=== PATIENT | female | born 1955 | race Caucasian/White ===

== ENCOUNTER 2017-03-01 08:30 | Emergency (ER) | payer BC ==
[~2017-03-01] VITALS: Ht 162.6 cm; Wt 89.0 kg
[~2017-03-01 08:30] MED LIST: ALPR0.25 PO; CITA10TA4 PO; DULO20CA45 PO; LOSA100T6 PO; NIAC1TBM PO; OLME5TAB4 PO; OMEP20TA62 PO; ROSU5TAB PO
[2017-03-01 08:31] VITALS: BP 156/83
[2017-03-01] MEDS ORDERED: VALS1TAB24 PO (09:11)
== END 2017-03-01 10:56 | disposition home or self-care (01) ==
LOC: ED 10:09
DX: M71.22 Synovial cyst of popliteal space [Baker], left knee (principal); I10 Essential (primary) hypertension
CPT/HCPCS: 99284

== ENCOUNTER 2018-01-21 22:29 | Inpatient (IN) | payer BC ==
[~2018-01-21] VITALS: Ht 162.6 cm; Wt 80.7 kg
[~2018-01-21 22:29] MED LIST changes: +VALS1TAB24 PO
[2018-01-21] MEDS ORDERED: PROMETHAZINE 25 MG/ML, 1ML IM ONE (23:00)
[2018-01-21] MEDS ORDERED: SODIUM CHLORIDE FLUSH 10ML SYR IVF ONE (23:00)
[2018-01-21] MEDS ORDERED: SODIUM CHLORIDE 0.9% 1,000ML IVBOLUS ONE (23:00)
[2018-01-21] MEDS ORDERED: PROMETHAZINE 25 MG/ML, 1ML ONE (23:01)
[2018-01-21 23:10] LABS: BASOPHILS # (AUTO) 0.03 x10^3/uL (0-0.1); BASOPHILS % (AUTO) 0 % (0-1); EOSINOPHILS # (AUTO) 0.06 x10^3/uL (0-0.4); EOSINOPHILS % (AUTO) 0 % (1-7); LYMPHOCYTES # (AUTO) 1.63 x10^3/uL (1-3.4); LYMPHOCYTES % (AUTO) 11 % (22-44); MD NO; MEAN CORPUSCULAR HEMOGLOBIN 31.9 pg (27.0-34.8); MEAN CORPUSCULAR HGB CONC 33.9 g/dL (32.4-35.8); MEAN CORPUSCULAR VOLUME 94.2 fL (80-100); MEAN PLATELET VOLUME 8.6 fL (7.4-10.4); MONOCYTES # (AUTO) 1.03 x10^3/uL (0.2-0.8); MONOCYTES % (AUTO) 7 % (2-9); NEUTROPHILS % (AUTO) 82 % (42-75); PLATELET COUNT 445 x10^3/uL (130-400); RED BLOOD COUNT 4.11 x10^6/uL (3.82-5.3); RED CELL DISTRIBUTION WIDTH 13.7 % (9.6-15.2)
[2018-01-21 23:23] LABS: ALANINE AMINOTRANSFERASE 14 U/L (12-78); ANION GAP 9 mmol/L (5-15); CHLORIDE 105 mmol/L (98-107); CREATININE 0.61 mg/dL (0.55-1.02)
[2018-01-21 23:26] LABS: ALKALINE PHOSPHATASE 69 U/L (45-117); BILIRUBIN,TOTAL 0.3 mg/dL (0.2-1.0); TOTAL PROTEIN 7.7 g/dL (6.4-8.2)
[2018-01-21] MEDS ORDERED: OMNIPAQUE 350 MG/ML, 100ML BOTTLE ONE (23:47)
[2018-01-22] MEDS ORDERED: cipro (00:56)
[2018-01-22] MEDS ORDERED: OMEP-110 PO (00:56)
[2018-01-22] MEDS ORDERED: MELO15TA6 PO (00:56)
[2018-01-22] MEDS ORDERED: flagyl (00:56)
[2018-01-22] MEDS ORDERED: ONDANSETRON ODT 4 MG PO PRN (01:00)
[2018-01-22] MEDS ORDERED: ERTAPENEM 1 GM in SODIUM CHLORIDE 0.9% 50 ML IV ONE (01:00)
[2018-01-22] MEDS ORDERED: MORPHINE SULFATE 4 MG/ML, 1ML IVPush PRN (01:00)
[2018-01-22 01:04] LABS: MICROSCOPIC NOT IND
[2018-01-22 01:16] LABS: CULTURE INDICATED? NO
[2018-01-22 01:30] VITALS: BP 139/91
[2018-01-22] MEDS ORDERED: D5%-0.45NACL+KCL 20MEQ 1,000 ML IV SCH (01:30)
[2018-01-22] MEDS ORDERED: hydrALAzine 20 MG/ML, 1ML IVPush PRN (03:30)
[2018-01-22] MEDS: SODIUM CHLORIDE 0.9% 1,000 ML IV SCH ×3 (04:18→21:46)
[2018-01-22] MEDS: morphine SULFATE 10 MG/ML, 1ML IVPush PRN ×4 (04:18→18:29)
[2018-01-22 05:42] LABS: BASOPHILS # (AUTO) 0.06 x10^3/uL (0-0.1); BASOPHILS % (AUTO) 0 % (0-1); EOSINOPHILS % (AUTO) 0 % (1-7); LYMPHOCYTES # (AUTO) 1.23 x10^3/uL (1-3.4); LYMPHOCYTES % (AUTO) 8 % (22-44); MD NO; MEAN CORPUSCULAR HEMOGLOBIN 32.1 pg (27.0-34.8); MEAN CORPUSCULAR VOLUME 94.4 fL (80-100); MEAN PLATELET VOLUME 8.6 fL (7.4-10.4); MONOCYTES # (AUTO) 0.83 x10^3/uL (0.2-0.8); MONOCYTES % (AUTO) 6 % (2-9); NEUTROPHILS # (AUTO) 12.68 x10^3/uL (1.8-6.8); NEUTROPHILS % (AUTO) 86 % (42-75); PLATELET COUNT 420 x10^3/uL (130-400); RED BLOOD COUNT 3.77 x10^6/uL (3.82-5.3); RED CELL DISTRIBUTION WIDTH 13.7 % (9.6-15.2)
[2018-01-22 05:48] LABS: ANION GAP 6 mmol/L (5-15); CALCIUM 8.6 mg/dL (8.5-10.1); CHLORIDE 107 mmol/L (98-107); CREATININE 0.57 mg/dL (0.55-1.02)
[2018-01-22 08:17] VITALS: BP 133/89
[2018-01-22] MEDS ORDERED: MIDAZOLAM 1 MG/ML, 5ML ONE ×2 (11:44)
[2018-01-22] MEDS ORDERED: NALOXONE 1 MG/ML, 2ML ONE (11:44)
[2018-01-22] MEDS ORDERED: FENTANYL PF 100 MCG/2ML ONE (11:44)
[2018-01-22] MEDS ORDERED: FLUMAZENIL 0.1 MG/1 ML, 5ML ONE (11:44)
[2018-01-22] MEDS ORDERED: LIDOCAINE 2%, 20ML ONE (11:48)
[2018-01-22] MEDS: ONDANSETRON ODT 4 MG PO PRN ×2 (13:33→18:30)
[2018-01-22 19:10] VITALS: BP 147/89
[2018-01-22] MEDS: ACETAMINOPHEN 325 MG TABLET PO PRN (21:31)
[2018-01-23 00:41] VITALS: BP 138/84
[2018-01-23] MEDS: ERTAPENEM 1 GM in SODIUM CHLORIDE 0.9% 50 ML IV SCH (01:41)
[2018-01-23] MEDS: morphine SULFATE 10 MG/ML, 1ML IVPush PRN ×4 (02:03→21:04)
[2018-01-23] MEDS: SODIUM CHLORIDE 0.9% 1,000 ML IV SCH ×4 (03:27→22:51)
[2018-01-23] MEDS: ACETAMINOPHEN 325 MG TABLET PO PRN ×3 (03:52→18:32)
[2018-01-23 05:11] LABS: BASOPHILS # (AUTO) 0.04 x10^3/uL (0-0.1); BASOPHILS % (AUTO) 0 % (0-1); EOSINOPHILS # (AUTO) 0.03 x10^3/uL (0-0.4); EOSINOPHILS % (AUTO) 0 % (1-7); LYMPHOCYTES # (AUTO) 2.46 x10^3/uL (1-3.4); LYMPHOCYTES % (AUTO) 22 % (22-44); MD NO; MEAN CORPUSCULAR HEMOGLOBIN 32.7 pg (27.0-34.8); MEAN CORPUSCULAR HGB CONC 34.7 g/dL (32.4-35.8); MEAN CORPUSCULAR VOLUME 94.3 fL (80-100); MEAN PLATELET VOLUME 8.6 fL (7.4-10.4); MONOCYTES # (AUTO) 0.61 x10^3/uL (0.2-0.8); MONOCYTES % (AUTO) 5 % (2-9); NEUTROPHILS # (AUTO) 8.07 x10^3/uL (1.8-6.8); NEUTROPHILS % (AUTO) 72 % (42-75); PLATELET COUNT 365 x10^3/uL (130-400); RED BLOOD COUNT 3.37 x10^6/uL (3.82-5.3); RED CELL DISTRIBUTION WIDTH 13.9 % (9.6-15.2)
[2018-01-23 05:25] LABS: ANION GAP 6 mmol/L (5-15); CALCIUM 7.9 mg/dL (8.5-10.1); CHLORIDE 108 mmol/L (98-107); CREATININE 0.37 mg/dL (0.55-1.02)
[2018-01-23 07:35] VITALS: BP 123/77
[2018-01-23] MEDS: ONDANSETRON ODT 4 MG PO PRN (09:50)
[2018-01-23 13:53] VITALS: BP 131/85
[2018-01-23 19:37] VITALS: BP 136/83
[2018-01-24] MEDS: morphine SULFATE 10 MG/ML, 1ML IVPush PRN ×5 (00:41→22:40)
[2018-01-24] MEDS: ERTAPENEM 1 GM in SODIUM CHLORIDE 0.9% 50 ML IV SCH (00:59)
[2018-01-24 01:25] VITALS: BP 152/92
[2018-01-24] MEDS: ACETAMINOPHEN 325 MG TABLET PO PRN (03:28)
[2018-01-24 05:37] LABS: ALANINE AMINOTRANSFERASE 13 U/L (12-78); ALBUMIN 2.2 g/dL (3.4-5.0); ANION GAP 11 mmol/L (5-15); CALCIUM 8.4 mg/dL (8.5-10.1); CHLORIDE 106 mmol/L (98-107)
[2018-01-24 05:38] LABS: BASOPHILS # (AUTO) 0.04 x10^3/uL (0-0.1); BASOPHILS % (AUTO) 0 % (0-1); EOSINOPHILS # (AUTO) 0.05 x10^3/uL (0-0.4); EOSINOPHILS % (AUTO) 0 % (1-7); LYMPHOCYTES # (AUTO) 2.17 x10^3/uL (1-3.4); LYMPHOCYTES % (AUTO) 18 % (22-44); MD NO; MEAN CORPUSCULAR HEMOGLOBIN 32.2 pg (27.0-34.8); MEAN CORPUSCULAR VOLUME 94.5 fL (80-100); MEAN PLATELET VOLUME 8.8 fL (7.4-10.4); MONOCYTES # (AUTO) 0.67 x10^3/uL (0.2-0.8); MONOCYTES % (AUTO) 6 % (2-9); NEUTROPHILS # (AUTO) 8.89 x10^3/uL (1.8-6.8); NEUTROPHILS % (AUTO) 75 % (42-75); PLATELET COUNT 385 x10^3/uL (130-400); RED BLOOD COUNT 3.39 x10^6/uL (3.82-5.3); RED CELL DISTRIBUTION WIDTH 13.5 % (9.6-15.2)
[2018-01-24 05:40] LABS: ALKALINE PHOSPHATASE 67 U/L (45-117); BILIRUBIN,TOTAL 0.7 mg/dL (0.2-1.0); CREATININE 0.41 mg/dL (0.55-1.02); TOTAL PROTEIN 6.3 g/dL (6.4-8.2)
[2018-01-24 07:26] VITALS: BP 144/90
[2018-01-24] MEDS: SODIUM CHLORIDE 0.9% 1,000 ML IV SCH (07:42)
[2018-01-24] MEDS: NS + 20MEQ KCL 1,000 ML IV SCH (10:04)
[2018-01-24 13:06] VITALS: BP 156/93
[2018-01-24 20:30] VITALS: BP 136/88
[2018-01-25] MEDS: NS + 20MEQ KCL 1,000 ML IV SCH ×4 (00:03→10:30)
[2018-01-25 00:34] VITALS: BP 153/97
[2018-01-25] MEDS: ERTAPENEM 1 GM in SODIUM CHLORIDE 0.9% 50 ML IV SCH (01:13)
[2018-01-25] MEDS: morphine SULFATE 10 MG/ML, 1ML IVPush PRN ×3 (03:10→20:39)
[2018-01-25 05:45] LABS: BASOPHILS # (AUTO) 0.03 x10^3/uL (0-0.1); BASOPHILS % (AUTO) 0 % (0-1); EOSINOPHILS # (AUTO) 0.19 x10^3/uL (0-0.4); EOSINOPHILS % (AUTO) 2 % (1-7); LYMPHOCYTES # (AUTO) 2.02 x10^3/uL (1-3.4); LYMPHOCYTES % (AUTO) 25 % (22-44); MD NO; MEAN CORPUSCULAR HEMOGLOBIN 31.9 pg (27.0-34.8); MEAN CORPUSCULAR HGB CONC 33.9 g/dL (32.4-35.8); MEAN CORPUSCULAR VOLUME 94.1 fL (80-100); MEAN PLATELET VOLUME 8.4 fL (7.4-10.4); MONOCYTES # (AUTO) 0.64 x10^3/uL (0.2-0.8); MONOCYTES % (AUTO) 8 % (2-9); NEUTROPHILS # (AUTO) 5.25 x10^3/uL (1.8-6.8); NEUTROPHILS % (AUTO) 65 % (42-75); PLATELET COUNT 394 x10^3/uL (130-400); RED BLOOD COUNT 3.34 x10^6/uL (3.82-5.3); RED CELL DISTRIBUTION WIDTH 13.3 % (9.6-15.2)
[2018-01-25 05:47] LABS: CHLORIDE 107 mmol/L (98-107)
[2018-01-25 06:04] LABS: ALANINE AMINOTRANSFERASE 13 U/L (12-78); ALBUMIN 2.2 g/dL (3.4-5.0); ALKALINE PHOSPHATASE 61 U/L (45-117); ANION GAP 11 mmol/L (5-15); BILIRUBIN,TOTAL 0.6 mg/dL (0.2-1.0); CALCIUM 7.7 mg/dL (8.5-10.1); CREATININE 0.41 mg/dL (0.55-1.02); TOTAL PROTEIN 6.2 g/dL (6.4-8.2)
[2018-01-25] MEDS ORDERED: POTASSIUM CHLORIDE 40 MEQ in SODIUM CHLORIDE 0.9% 500 ML IV ONE (07:30)
[2018-01-25] MEDS ORDERED: MAGNESIUM SULFATE PMX 2GM/50ML 50 ML IV ONE (07:30)
[2018-01-25 08:09] VITALS: BP 149/96
[2018-01-25] MEDS ORDERED: POTASSIUM PHOSPHATE 22 MEQ in SODIUM CHLORIDE 0.9% 500 ML IV ONE (08:30)
[2018-01-25] MEDS: CEFTRIAXONE PMX 2GM/50ML 50 ML IV SCH (11:29)
[2018-01-25 13:32] VITALS: BP 152/89
[2018-01-25 18:33] VITALS: BP 159/100
[2018-01-26] MEDS: NS + 20MEQ KCL 1,000 ML IV SCH ×2 (00:09→09:27)
[2018-01-26] MEDS: morphine SULFATE 10 MG/ML, 1ML IVPush PRN ×4 (00:22→23:05)
[2018-01-26 01:18] VITALS: BP_SYST 159; BP_SYST 163; BP_DIAS 100; BP_DIAS 110
[2018-01-26 05:04] LABS: BASOPHILS # (AUTO) 0.03 x10^3/uL (0-0.1); BASOPHILS % (AUTO) 0 % (0-1); EOSINOPHILS # (AUTO) 0.19 x10^3/uL (0-0.4); EOSINOPHILS % (AUTO) 2 % (1-7); LYMPHOCYTES # (AUTO) 2.75 x10^3/uL (1-3.4); LYMPHOCYTES % (AUTO) 34 % (22-44); MD NO; MEAN CORPUSCULAR HEMOGLOBIN 32.1 pg (27.0-34.8); MEAN CORPUSCULAR HGB CONC 33.7 g/dL (32.4-35.8); MEAN CORPUSCULAR VOLUME 95.2 fL (80-100); MEAN PLATELET VOLUME 8.7 fL (7.4-10.4); MONOCYTES # (AUTO) 0.61 x10^3/uL (0.2-0.8); MONOCYTES % (AUTO) 8 % (2-9); NEUTROPHILS # (AUTO) 4.57 x10^3/uL (1.8-6.8); NEUTROPHILS % (AUTO) 56 % (42-75); PLATELET COUNT 534 x10^3/uL (130-400); RED BLOOD COUNT 3.94 x10^6/uL (3.82-5.3); RED CELL DISTRIBUTION WIDTH 13.4 % (9.6-15.2)
[2018-01-26 05:09] LABS: ALBUMIN 2.6 g/dL (3.4-5.0); ANION GAP 11 mmol/L (5-15); CALCIUM 8.2 mg/dL (8.5-10.1); CHLORIDE 104 mmol/L (98-107)
[2018-01-26 05:15] LABS: ALANINE AMINOTRANSFERASE 15 U/L (12-78); ALKALINE PHOSPHATASE 67 U/L (45-117); BILIRUBIN,TOTAL 0.5 mg/dL (0.2-1.0); CREATININE 0.39 mg/dL (0.55-1.02); TOTAL PROTEIN 7.3 g/dL (6.4-8.2)
[2018-01-26 07:57] VITALS: BP 143/94
[2018-01-26] MEDS ORDERED: POTASSIUM PHOSPHATE 22 MEQ in SODIUM CHLORIDE 0.9% 500 ML IV ONE (09:00)
[2018-01-26] MEDS: CEFTRIAXONE PMX 2GM/50ML 50 ML IV SCH (09:24)
[2018-01-26 13:45] VITALS: BP 139/97
[2018-01-26 15:50] LABS: CLOSTRIDIUM DIFFICILE ANTIGEN NEGATIVE; CLOSTRIDIUM DIFFICILE TOXIN NEGATIVE (Negative)
[2018-01-26] MEDS ORDERED: LOPERAMIDE 2 MG CAPSULE PO PRN (16:30)
[2018-01-26] MEDS ORDERED: MORPHINE SULFATE 4 MG/ML, 1ML ONE (16:43)
[2018-01-26 19:56] VITALS: BP 156/100
[2018-01-27 01:51] VITALS: BP 155/96
[2018-01-27] MEDS: morphine SULFATE 10 MG/ML, 1ML IVPush PRN ×2 (05:43→08:51)
[2018-01-27 07:45] VITALS: BP 156/92
[2018-01-27] MEDS: NS + 20MEQ KCL 1,000 ML IV SCH (08:51)
[2018-01-27] MEDS: CEFTRIAXONE PMX 2GM/50ML 50 ML IV SCH (10:26)
[2018-01-27 13:17] VITALS: BP 147/96
[2018-01-27] MEDS ORDERED: METR500T PO (14:45)
[2018-01-27] MEDS ORDERED: CEFD300C37 PO (14:45)
== END 2018-01-27 16:47 | disposition home or self-care (01) | DRG 391 ==
LOC: ED 23:45 → EDIP 01-22 00:54 → 3NE 01-22 01:28 → DCLOUNGE 01-27 16:33
PROVIDERS: ADMIT Hospitalist; ATTEND Hospitalist
PROC: 0W9G30Z Drainage of Peritoneal Cavity with Drainage Device, Percutaneous Approach (ICD-10-PCS; principal; 2018-01-22)
DX: K57.20 Diverticulitis of large intestine with perforation and abscess without bleeding (principal); E43 Unspecified severe protein-calorie malnutrition; E78.5 Hyperlipidemia, unspecified; E87.6 Hypokalemia; F32.9 Major depressive disorder, single episode, unspecified; F41.9 Anxiety disorder, unspecified; I10 Essential (primary) hypertension; B96.20 Unspecified Escherichia coli [E. coli] as the cause of diseases classified elsewhere; Z90.710 Acquired absence of both cervix and uterus; Z96.651 Presence of right artificial knee joint; Z68.30 Body mass index [BMI] 30.0-30.9, adult
CPT/HCPCS: 36415; 49405; 49406; 74177; 80048; 80053; 81003; 83735; 84100; 84145; 85025; 87015; 87040; 87070; 87075; 87077; 87116; 87186; 87205; 87206; 87324; 96361; 96372; 96374; 99156; 99157; J0696; J1335; J2250; J2550; J3010; J3480; J3490; Q0162; Q9967; C1729; C1769; J2270; J2310; J3475; J7030; J7040

== ENCOUNTER → 2018-03-17 | Outpatient (CLI) | payer BC ==
[~2018-03-17] MED LIST changes: +CEFD300C37 PO; +MELO15TA6 PO; +METR500T PO; +OMEP-110 PO; +cipro; +flagyl
[2018-03-17 12:19] LABS: BASOPHILS # (AUTO) 0.05 x10^3/uL (0-0.1); BASOPHILS % (AUTO) 1 % (0-1); EOSINOPHILS % (AUTO) 1 % (1-7); LYMPHOCYTES # (AUTO) 3.31 x10^3/uL (1-3.4); LYMPHOCYTES % (AUTO) 44 % (22-44); MD NO; MEAN CORPUSCULAR HEMOGLOBIN 31.4 pg (27.0-34.8); MEAN CORPUSCULAR VOLUME 92.4 fL (80-100); MEAN PLATELET VOLUME 8.6 fL (7.4-10.4); MONOCYTES # (AUTO) 0.61 x10^3/uL (0.2-0.8); MONOCYTES % (AUTO) 8 % (2-9); NEUTROPHILS # (AUTO) 3.55 x10^3/uL (1.8-6.8); NEUTROPHILS % (AUTO) 47 % (42-75); PLATELET COUNT 359 x10^3/uL (130-400); RED BLOOD COUNT 4.81 x10^6/uL (3.82-5.3)
[2018-03-17 12:30] LABS: ALBUMIN 3.4 g/dL (3.4-5.0); ANION GAP 6 mmol/L (5-15); CALCIUM 9.2 mg/dL (8.5-10.1); CHLORIDE 104 mmol/L (98-107)
[2018-03-17 12:33] LABS: ALANINE AMINOTRANSFERASE 19 U/L (12-78); ALKALINE PHOSPHATASE 85 U/L (45-117); BILIRUBIN,TOTAL 0.5 mg/dL (0.2-1.0); CREATININE 0.67 mg/dL (0.55-1.02); TOTAL PROTEIN 7.8 g/dL (6.4-8.2)
== END | disposition home or self-care (01) ==
LOC: STAR 11:22
PROVIDERS: ATTEND Surgery
DX: Z01.818 Encounter for other preprocedural examination (principal); I10 Essential (primary) hypertension
CPT/HCPCS: 36415; 71046; 80053; 85025; 93005